=== PATIENT | male | born 1940 | race Caucasian/White ===

== ENCOUNTER → 2017-11-02 07:56 | Outpatient (CLI) | payer MEDICARE, SELFPAY ==
[2017-11-02 12:49] LABS: Anion Gap 5 (5-15); BUN 20 mg/dL (7-18); BUN/Creat Ratio 12.2 RATIO (10-20); Calcium,Total 8.8 mg/dL (8.5-10.1); Chloride 104 mmol/L (98-107); Creatinine, Serum 1.64 mg/dL (0.70-1.30); EST Glomerular Filtration Rate 43 mL/min (>60); Est Glom Filt Rate - Afr Amer 53 mL/min (>60); Glucose 91 mg/dL (74-106); Potassium 4.3 mmol/L (3.5-5.1); Sodium Level 139 mmol/L (136-145)
== END ==
PROVIDERS: Visit Provider Nurse Practitioner
DX: N18.3 Chronic kidney disease, stage 3 (moderate) (principal)
CPT/HCPCS: 80048

== ENCOUNTER → 2018-08-15 13:34 | Outpatient (CLI) | payer MEDICARE, SELFPAY ==
[2018-08-15 13:59] LABS: Hematocrit 48.2 % (40-54); Hemoglobin 15.3 g/dl (13.0-16.5); Mean Corp Hgb Conc 31.7 g/gl (32-36); Mean Corpuscular Hgb 29.1 pg (27.0-32.0); Mean Corpuscular Volume 91.8 fL (80-94); Mean Platelet Vol. 10.2 fl (6.2-12.0); Platelet Count 249 K/mm3 (150-450); RBC Distribution Width CV 13.2 % (11.6-14.6); RBC Distribution Width SD 43.6 fl (35.1-43.9); Red Blood Count 5.25 M/mm3 (4.6-6.2); White Blood Count 10.7 K/mm3 (4.4-11.0)
[2018-08-15 14:05] LABS: Scan Indicated on CBC? Y/N NO
[2018-08-15 14:27] LABS: ALB/GLOB Ratio 0.9 RATIO (0.9-2.4); AST(SGOT) 20 U/L (15-37); Alanine Aminotransfer ALT/SGPT 26 U/L (16-61); Albumin, Serum 3.7 g/dL (3.2-5.0); Alkaline Phosphatase 90 U/L (45-117); Anion Gap 7 (5-15); BUN 16 mg/dL (7-18); BUN/Creat Ratio 12.6 RATIO (10-20); Calcium,Total 8.7 mg/dL (8.5-10.1); Chloride 108 mmol/L (98-107); Cholesterol 151 mg/dL (200); Creatinine, Serum 1.27 mg/dL (0.70-1.30); EST Glomerular Filtration Rate 58 mL/min (>60); Est Glom Filt Rate - Afr Amer 70 mL/min (>60); Glucose 93 mg/dL (74-106); High Density Lipoprotein 47 mg/dL; Potassium 4.4 mmol/L (3.5-5.1); Protein, Total 7.7 g/dL (6.4-8.2); Sodium Level 144 mmol/L (136-145); Thyroid Stim Hormone (TSH) 2.53 uIU/mL (0.358-3.74); Triglycerides 117 mg/dL; Very Low Density Lipoprotein 23 mg/dL (5-40)
== END ==
PROVIDERS: Family Provider Internal Medicine; PCP Internal Medicine; Referring Provider Internal Medicine; Visit Provider Internal Medicine
DX: E78.49 Other hyperlipidemia (principal); E03.9 Hypothyroidism, unspecified; N18.3 Chronic kidney disease, stage 3 (moderate); K21.9 Gastro-esophageal reflux disease without esophagitis
CPT/HCPCS: 80053; 80061; 84443; 85027

== ENCOUNTER 2018-11-02 17:53 | Emergency (ER) | payer MEDICARE, SELFPAY ==
[2018-11-02 17:54] VITALS: BP 138/75; PULSE 71; RESP 17; TEMP 36.4; O2SAT 97
[2018-11-02 18:38] VITALS: BP 135/71; PULSE 68; RESP 14
--- NOTE | 2018-11-02 19:00 | EKG12_ITS ---
Test Reason : ABN LABS Blood Pressure : / mmHG Vent. Rate : 068 BPM Atrial Rate : 068 BPM P-R Int : 172 ms QRS Dur : 084 ms QT Int : 422 ms P-R-T Axes : 043 007 047 degrees QTc Int : 448 ms Normal sinus rhythm Normal ECG Confirmed by LEAH LAM ([id number]), supervising editor news reel LANCE COBURN ([id number]) on 11/05/2018 1:54:57 PM Referred By: MAUREEN Confirmed By:LEAH LAM
--- NOTE | 2018-11-02 19:00 | CT_ITS ---
STUDY: CT ABDOMEN AND PELVIS WITHOUT CONTRAST REASON FOR EXAM: Male, 78 years old. Abdominal pain with nausea and vomiting Monday, hypokalemia RADIATION DOSAGE (If Supplied By Facility): CTDIvol = ( 12.77 ) mGy, DLP = ( 666.59 ) mGycm TECHNIQUE: Transaxial images were obtained from the dome of the diaphragm to the symphysis pubis without oral contrast, and without intravenous contrast. Sagittal and coronal images were reconstructed. Individualized dose optimization techniques were used for this CT. COMPARISON: None. FINDINGS: The visualized lung bases are unremarkable. Coronary artery calcifications noted. Normal liver. Normal gallbladder and extrahepatic biliary system. Normal spleen. Normal pancreas. Normal bilateral adrenal glands. Normal right kidney. Normal left kidney. Normal visualized stomach. Diffuse fluid-filled small bowel and proximal colon but no large or small bowel wall thickening. There are multiple colonic diverticula consistent with diverticulosis. The appendix is visualized and appears normal. There is diffuse atherosclerotic calcification of the abdominal aorta, without a demonstrated aneurysm. Normal inferior vena cava. Normal retroperitoneum. Normal urinary bladder. Normal abdominal wall. There are diffuse degenerative changes of the visualized lumbar spine. CT/Abdomen/Pelvis without Cont IMPRESSION: 1. No evidence of bowel obstruction. 2. Fluid-filled small bowel and colon suggesting gastroenteritis/diarrhea disease. 3. Atherosclerosis. 4. Diverticulosis without evidence of diverticulitis. Electronically Signed: Romulo Hagan MD at 20:43 EDT , Service support ,
--- NOTE | 2018-11-02 19:01 | ED.VISSUMM ---
- ER Visit Summary Date of Service: 11/02/18 Chief Complaint: Abnormal labs History of Present Illness: The patient is a 78 M referred to the emergency department by his primary care doctor because of abnormal labs. Per the patient his potassium was low. Patient does not know what the number was and it is not in our system. Patient states he has had diarrhea and vomiting for the last 5 days after eating lobster. Diarrhea has been profuse and watery. The vomiting stopped yesterday. He has abdominal discomfort. He denies any chest pain, shortness of breath, fever or other complaints. He is not on any blood thinners. He denies cardiac history. He has history of hypertension and hyperlipidemia. Physical Examination: Vital signs: afebrile, hemodynamically stable, no hypoxia on room air General: well nourished, well developed, in no distress Skin: warm, dry, no rash, no pallor HEENT: normocephalic and atraumatic; PERRL, EOMI, moist mucous membranes Cardiovascular: regular rate and rhythm without murmurs, no peripheral edema, 2+ pulses all distal extremities Respiratory: No increased work of breathing, lungs are clear to auscultation bilaterally, no rales, rhonchi or wheezing Abdominal: Abdomen is soft, nontender with hyperactive bowel sounds, no guarding or rebound, no masses MSK: Moves all extremities, no deformities, normal strength Neuro: Awake and alert, oriented ?4. No facial droop, sensation and motor function intact and symmetric Test Results: Abnormal Lab Results 11/02/18 11/02/18 18:06 18:06 WBC 10.0 RBC 5.67 Hgb 17.1 H Hct 48.3 MCV 85.2 MCH 30.2 MCHC 35.4 RDW 12.6 RDW Differential 39.2 Plt Count 245 MPV 9.4 Immature Gran % (Auto) 0.200 Neut % (Auto) 68.6 Lymph % (Auto) 18.8 L Norton % (Auto) 11.2 H Eos % (Auto) 0.9 Baso % (Auto) 0.3 Absolute Neuts (auto) 6.9 Absolute Lymphs (auto) 1.88 Total Counted Not Reportable Sodium 134 L Potassium 3.3 L Chloride 101 Carbon Dioxide 28.0 Anion Gap 5 BUN 35 H Creatinine 1.63 H Estim Creat Clear Calc 35.55 Est GFR (MDRD) Af Amer 53 L Est GFR (MDRD) Non-Af 44 L BUN/Creatinine Ratio 21.5 H Glucose 90 Calcium 8.5 Total Bilirubin 0.80 AST 40 H ALT 36 Alkaline Phosphatase 92 Total Protein 9.0 H Albumin 4.2 Globulin 4.8 H Albumin/Globulin Ratio 0.9 Clinical Impression(s) from Imaging Studies Abdomen/Pelvis CT 11/02/18 19:00 IMPRESSION: 1. No evidence of bowel obstruction. 2. Fluid-filled small bowel and colon suggesting gastroenteritis/diarrhea disease. 3. Atherosclerosis. 4. Diverticulosis without evidence of diverticulitis. Electronically Signed: Romulo Hagan MD at 20:43 EDT , Service support , Medications Given Discontinued Medications Sodium Chloride () 1,000 mls @ 1,000 mls/hr IV .Q1H ONE Stop: 11/02/18 19:59 Last Admin: 11/02/18 19:15 Dose: 1,000 mls/hr Potassium Chloride (K-Dur) 60 meq PO X1 ONE Stop: 11/02/18 20:11 Last Admin: 11/02/18 20:33 Dose: 60 meq Emergency Department Course and Treatment: Patient presents after referral by his primary care doctor for low potassium. Labs were not available for review. Work-up performed. EKG showed a sinus rhythm with diffuse T wave flattening but no other changes. Labs showed no leukocytosis. Potassium was 3.3. Creatinine was 1.6, which is consistent with prior readings that the patient has had. BUN was also elevated, consistent with mild dehydration. Patient was given IV fluids for hydration. He was given oral potassium for repletion. Because of his diarrhea and the recent vomiting, which is since resolved, CT the abdomen and pelvis was performed that showed fluid-filled loops of bowel consistent with a diarrheal illness. Patient already has stool studies pending with his primary care doctor. He is very well-appearing and has had no vomiting or diarrhea in the emergency department. She was discharged home and is to follow-up with his doctor on Monday for further review of his outpatient work-up and to further discuss his potassium. Patient agreed with this plan and was discharged home very well-appearing and in no distress. Treatment Plan: [] Disposition: [] Impression: Mild hypokalemia, mild dehydration, vomiting and diarrhea illness This note was generated with Modabound dictation software. It may contain incorrect words, spelling, and punctuation that were not noted in review of the chart prior to signing ED Disposition - Plan for ED Patient: Disposition: Home or Assisted Living Instructions: ED Potassium Deficiency, ED Vomiting Diarrhea Nonspecific Ad Referrals: Aldo Sotelo MD [Primary Care Provider] - As soon as possible Additional Instructions: Your potassium was only slightly low at 3.3. You were given an oral dose of potassium. Your work-up also was concerning for mild dehydration. You were given IV fluids for this. Please follow-up with your doctor on Monday for another evaluation and to discuss the results from today. Also please follow-up with your doctor to discuss the results of your stool study that your doctor did. If you have any worsening of your condition or any further concerns, return immediately to the emergency department for another evaluation.
[2018-11-02] MEDS: 0.9% Normal Saline 1,000 ML 1000 ML IV (19:15)
[2018-11-02 19:33] LABS: Absolute Lymphocyte Count 1.88 X10^3/ul (0.83-4.51); Absolute Neutrophil Count 6.9 X10^3/uL (2.0-7.7); Basophil# 0.03 X10^3/uL; Basophil% 0.3 % (0-1); Eosinophil# 0.09 X10^3/uL; Eosinophils% 0.9 % (0-5); Hematocrit 48.3 % (40-54); Hemoglobin 17.1 g/dl (13.0-16.5); Lymphocyte # 1.88 X10^3/ul (4.0); Lymphocyte % 18.8 % (19-41); Mean Corp Hgb Conc 35.4 g/gl (32-36); Mean Corpuscular Hgb 30.2 pg (27.0-32.0); Mean Corpuscular Volume 85.2 fL (80-94); Mean Platelet Vol. 9.4 fl (6.2-12.0); Monocyte# 1.12 X10^3/uL; Monocyte% 11.2 % (0-10); Neutrophil # 6.87 X10^3/uL (2.7-7.7); Neutrophil % 68.6 % (47-70); POSITIVE COUNT NO; POSITIVE DIFFERENTIAL NO; POSITIVE MORPHOLOGY NO; Platelet Count 245 K/mm3 (150-450); RBC Distribution Width CV 12.6 % (11.6-14.6); RBC Distribution Width SD 39.2 fl (35.1-43.9); Red Blood Count 5.67 M/mm3 (4.6-6.2)
[2018-11-02 19:44] LABS: ALB/GLOB Ratio 0.9 RATIO (0.9-2.4); AST(SGOT) 40 U/L (15-37); Alanine Aminotransfer ALT/SGPT 36 U/L (16-61); Albumin, Serum 4.2 g/dL (3.2-5.0); Alkaline Phosphatase 92 U/L (45-117); Anion Gap 5 (5-15); BUN 35 mg/dL (7-18); BUN/Creat Ratio 21.5 RATIO (10-20); Calcium,Total 8.5 mg/dL (8.5-10.1); Chloride 101 mmol/L (98-107); Creatinine, Serum 1.63 mg/dL (0.70-1.30); EST Glomerular Filtration Rate 44 mL/min (>60); Est Glom Filt Rate - Afr Amer 53 mL/min (>60); Estimated Creatinine Clearance 35.55 ml/min; Globulin 4.8 g/dL (2.2-4.2); Glucose 90 mg/dL (74-106); Potassium 3.3 mmol/L (3.5-5.1); Sodium Level 134 mmol/L (136-145)
[2018-11-02 20:00] VITALS: BP 138/59; PULSE 62; RESP 13; O2SAT 98
[2018-11-02 22:47] VITALS: BP 124/72; PULSE 69; RESP 16; O2SAT 98
== END 2018-11-02 22:47 | disposition home or self-care (01) ==
PROVIDERS: Emergency Provider Emergency Medicine; Family Provider Internal Medicine; PCP Internal Medicine
DX: E87.6 Hypokalemia (principal); E86.0 Dehydration; R11.10 Vomiting, unspecified; R19.7 Diarrhea, unspecified; K57.90 Diverticulosis of intestine, part unspecified, without perforation or abscess without bleeding; K21.9 Gastro-esophageal reflux disease without esophagitis; I10 Essential (primary) hypertension; E78.00 Pure hypercholesterolemia, unspecified; Z79.82 Long term (current) use of aspirin; Z79.899 Other long term (current) drug therapy
CPT/HCPCS: 74176; 80053; 85025; 93005; 96360; 99285; J7030; A4216

== ENCOUNTER → 2019-08-05 | Outpatient (CLI) | payer MEDICARE, SELFPAY ==
[2019-08-05 12:59] LABS: Hematocrit 44.7 % (40-54); Hemoglobin 14.3 g/dL (13.0-16.5); Mean Corpuscular Hgb 29.4 pg (27.0-32.0); Mean Corpuscular Volume 91.8 fL (80-94); Mean Platelet Vol. 10.5 fl (6.2-12.0); Platelet Count 297 K/mm3 (150-450); RBC Distribution Width CV 13.2 % (11.6-14.6); RBC Distribution Width SD 45.1 fl (35.1-43.9); Red Blood Count 4.87 M/mm3 (4.6-6.2); White Blood Count 9.9 K/mm3 (4.4-11.0)
[2019-08-05 13:10] LABS: Vitamin B12 1228 pg/mL (211-911)
[2019-08-05 13:11] LABS: ALB/GLOB Ratio 0.6 RATIO (0.9-2.4); AST(SGOT) 178 U/L (15-37); Alanine Aminotransfer ALT/SGPT 400 U/L (16-61); Albumin, Serum 3.1 g/dL (3.2-5.0); Alkaline Phosphatase 575 U/L (45-117); Anion Gap 4 (5-15); BUN 16 mg/dL (7-18); BUN/Creat Ratio 11.5 RATIO (10-20); Calcium,Total 9.3 mg/dL (8.5-10.1); Chloride 108 mmol/L (98-107); Cholesterol 212 mg/dL (200); Creatinine, Serum 1.39 mg/dL (0.70-1.30); EST Glomerular Filtration Rate 52 mL/min (>60); Est Glom Filt Rate - Afr Amer 63 mL/min (>60); Globulin 4.9 g/dL (2.2-4.2); Glucose 113 mg/dL (74-106); High Density Lipoprotein 48 mg/dL; Potassium 4.5 mmol/L (3.5-5.1); Sodium Level 140 mmol/L (136-145); Thyroid Stim Hormone (TSH) 2.53 uIU/mL (0.358-3.74); Triglycerides 77 mg/dL; Very Low Density Lipoprotein 15 mg/dL (5-40)
== END | disposition home or self-care (01) ==
LOC: LABSPEC 12:37
PROVIDERS: PCP Internal Medicine; Referring Provider Internal Medicine; Visit Provider Internal Medicine
DX: E78.49 Other hyperlipidemia (principal); E03.9 Hypothyroidism, unspecified; G31.84 Mild cognitive impairment of uncertain or unknown etiology; I10 Essential (primary) hypertension
CPT/HCPCS: 80053; 80061; 82607; 84443; 85027

== ENCOUNTER 2019-08-16 19:16 | Emergency (ER) | payer MEDICARE, SELFPAY ==
[2019-08-16 19:17] VITALS: BP 170/80; PULSE 87; RESP 16; TEMP 36.4; O2SAT 99; BMI 29.0
--- NOTE | 2019-08-16 19:50 | CT_ITS ---
HISTORY: CONFUSION Technique:CT Head or Brain W/O Contrast Injection Number of Images including paperwork:248 Comparison: None available. Findings: CT images of the head were obtained without contrast. Periventricular deep and subcortical white matter disease is present. Adjacent to the sagittal sinus, on the right side of the sagittal sinus, displacing blood within the sagittal sinus, series 2 image 33, sagittal series 602 image 37, there is a relatively hypodense area that measures 2.8 x 0.8 x 0.8 cm. I believe this likely represents dural sinus fat, and I do not believe it is hypodense thrombus. The size and appearance of the transverse sinuses and sigmoid sinuses and torcula are normal. There is no loss of lyle-white differentiation within the adjacent brain. There is some erosion of the bone posteriorly to this lesion. The erosion of the bone appears to be well corticated and chronic. Paranasal sinuses are clear. The brain is atrophic. Calcific ASCVD involves intracranial arteries. No acute intracranial edema or hemorrhage. No acute abnormality of orbits. Middle ear cavities and mastoid air cells are well aerated. Skull is normal. CT/Brain/Head without Contrast IMPRESSION: No acute intracranial abnormality. 2.8 x 0.8 x 0.8 filling defect in the posterior right lateral aspect of the sagittal sinus. There is some adjacent well-corticated deformity and erosion of bone. 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 Chronic changes as above. ASPECT 10. Individualized dose optimization techniques were used for this CT. at 2120 Reported and signed by: Khalif Andrews MD Electronically Signed: Khalif Andrews MD at 21:19 EST Tel , Service support ,
--- NOTE | 2019-08-16 19:51 | EKG12_ITS ---
Test Reason : DYSRHYTHMIA Blood Pressure : / mmHG Vent. Rate : 076 BPM Atrial Rate : 076 BPM P-R Int : 162 ms QRS Dur : 082 ms QT Int : 382 ms P-R-T Axes : 043 002 027 degrees QTc Int : 429 ms Normal sinus rhythm Normal ECG Confirmed by RUBY PEREZ, DEO ([id number]), editor index LANCE COBURN ([id number]) on 08/19/2019 2:08:44 PM Referred By: DUDLEY Confirmed By:JONELLE BELTRAN MD
[2019-08-16 20:09] LABS: Bacteria 0 SEEN /hpf (None Seen); Mucous, Urine 0 SEEN /hpf (<or=2+)
[2019-08-16 20:10] LABS: Absolute Lymphocyte Count 1.81 X10^3/uL (0.83-4.51); Absolute Neutrophil Count 10.6 X10^3/uL (2.0-7.7); Basophil# 0.08 X10^3/uL; Basophil% 0.6 % (0-1); Eosinophil# 0.06 X10^3/uL; Eosinophils% 0.4 % (0-5); Hematocrit 43.5 % (40-54); Hemoglobin 14.2 g/dL (13.0-16.5); Lymphocyte # 1.81 X10^3/ul (4.0); Lymphocyte % 13.1 % (19-41); Mean Corp Hgb Conc 32.6 g/dL (32-36); Mean Corpuscular Hgb 28.9 pg (27.0-32.0); Mean Corpuscular Volume 88.4 fL (80-94); Mean Platelet Vol. 9.6 fl (6.2-12.0); Monocyte# 1.19 X10^3/uL; Monocyte% 8.6 % (0-10); NRBC Flagged by Analyzer 0 % (0-5); Neutrophil # 10.63 X10^3/uL (2.7-7.7); Neutrophil % 76.9 % (47-70); Platelet Count 331 K/mm3 (150-450); RBC Distribution Width CV 14.9 % (11.6-14.6); RBC Distribution Width SD 48.5 fl (35.1-43.9); Red Blood Count 4.92 M/mm3 (4.6-6.2); White Blood Count 13.8 K/mm3 (4.4-11.0)
[2019-08-16 20:17] VITALS: BP 151/66; PULSE 80; RESP 16; O2SAT 98
[2019-08-16 20:28] LABS: Color, Urine Yellow (Yellow); Glucose, Dipstick Normal (Normal); Ketone-Dipstick 5 mg/dl (Negative); Leukocyte Esterase-Dipstick 25 /ul (Negative); Nitrite-Dipstick Positive (Negative); Occult Blood-Urine 50 /ul (Negative); Protein-Dipstick 30 mg/dl (Negative); Specific Gravity, Urine 1.025 (1.002-1.030); Urine Clarity Sl. Cloudy (Clear); Urine Urobilinogen 4 mg/dl (Normal)
[2019-08-16 20:40] LABS: Alcohol, Blood (Medical)-Serum < 3.0 mg/dL; Urine Bilirubin Dipstick 6 mg/dL (Negative)
[2019-08-16 20:43] LABS: Amorphous Sediment 1+ URATE; Red Blood Cells-Urine 0-5 SEEN /hpf (0-5); Squamous Epithelial Cells - UA 0-5 SEEN /hpf (0-5); White Blood Cells 0-5 SEEN /hpf (0-5)
[2019-08-16 20:44] LABS: Amphetamine Urine VISTA NEGATIVE (<1000 ng/mL); Barbiturate Urine VISTA NEGATIVE (< 200 ng/mL); Benzodiazepine Urine VISTA NEGATIVE (< 200 ng/mL); Cocaine Urine VISTA NEGATIVE (< 300 ng/mL); Ecstacy Urine VISTA NEGATIVE (< 500 ng/mL); Methadone Urine VISTA NEGATIVE (< 300 ng/mL); PCP Urine VISTA NEGATIVE (< 25 ng/mL); THC Urine VISTA NEGATIVE (< 50 ng/mL); Vista UDS pH Range 6
--- NOTE | 2019-08-16 20:45 | RAD_ITS ---
HISTORY: confusion, difficulty following breathing instructions EXAM: XR Chest 2 Views: COMPARISON: None FINDINGS: # of images incl. paperwork: 3 Lungs are clear. Heart is not enlarged. Gentle dextroscoliosis with multilevel degenerative disc disease. Shoulder arthritis. Pulmonary vascularity is distinct. No effusions. RAD/Chest PA and Lateral IMPRESSION: Normal. at 2122 Reported and signed by: Khalif Andrews MD Electronically Signed: Khalif Andrews MD at 21:21 EST Tel , Service support ,
[2019-08-16 20:52] LABS: AST(SGOT) 124 U/L (15-37); Alanine Aminotransfer ALT/SGPT 217 U/L (16-61); Albumin, Serum 3.2 g/dL (3.2-5.0); Alkaline Phosphatase 566 U/L (45-117); Anion Gap 9 (5-15); BUN 24 mg/dL (7-18); BUN/Creat Ratio 18.6 RATIO (10-20); Bilirubin, Direct 7.16 mg/dL (0.00-0.30); Calcium,Total 8.9 mg/dL (8.5-10.1); Chloride 108 mmol/L (98-107); Creatinine, Serum 1.29 mg/dL (0.70-1.30); EST Glomerular Filtration Rate 57 mL/min (>60); Est Glom Filt Rate - Afr Amer 69 mL/min (>60); Estimated Creatinine Clearance 44.92 ml/min; Globulin 5.3 g/dL (2.2-4.2); Glucose 116 mg/dL (74-106); Lipase 5088 U/L (73-393); Potassium 3.6 mmol/L (3.5-5.1); Protein, Total 8.5 g/dL (6.4-8.2); Sodium Level 138 mmol/L (136-145); Thyroid Stim Hormone (TSH) 2.88 uIU/mL (0.358-3.74)
--- NOTE | 2019-08-16 21:04 | CT_ITS ---
HISTORY: PAINLESS JAUNDICE TECHNIQUE: Helically acquired images were obtained of the abdomen and pelvis without oral or IV contrast. A radiation dose optimization technique was used for this scan. COMPARISON: Previous CT scan of the abdomen and pelvis is from November 02, 2018 FINDINGS: # of images incl. 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 CT abdomen: Rotor scoliosis. Multilevel degenerative disc disease. Facet arthropathy. No defined lytic or blastic metastasis. The gallbladder is distended. No hepatic metastasis are perceived Intrahepatic biliary ductal dilatation is severe. The outer to outer diameter of the common hepatic duct is 17 mm. The common bile duct as it begins to enter into the pancreatic head is also 17 mm. The pancreatic duct is also dilated. The pancreatic duct dilatation within the head of the pancreas is to 11 mm. I cannot define a pancreatic head malignancy, however, due to the heterogeneity of the pancreatic head and the biliary and pancreatic ductal dilatation, the possibility of a pancreatic head neoplasm should be considered high within the differential. The ductal dilatation is new since the previous study Thespleen, and adrenal glands are normal. The kidneys are normal. The aorta is diseased with atherosclerotic plaque, but without aneurysm or dissection. CT pelvis: No ascites is present. The prostate gland is slightly enlarged indenting into the posterior inferior aspect of the urinary bladder. The appendix is prominent but normal, series 2 image 73. The bladder is normal. 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 The gallbladder is also distended, possibly due to the common bile duct obstruction. Individualized dose optimization techniques were used for this CT. at 2215 Reported and signed by: Khalif Andrews MD Electronically Signed: Khalif Andrews MD at 22:14 EST Tel , Service support ,
[2019-08-16 21:17] VITALS: BP 156/71; PULSE 73; RESP 18; O2SAT 98
--- NOTE | 2019-08-16 21:30 | ED.VISSUMM ---
- ER Visit Summary Date of Service: 08/16/19 Chief Complaint: Confusion History of Present Illness: The patient is a [address] Sotelo. Patient has confusion and obvious delusions that began today. He called his son and told him that somebody was coming after him with a air soft gun and was going to kill him. He actually went to a hotel and checked again and had barricaded him in the room. When son arrived there was nobody there. Patient had a similar episode last summer and saw psychologist 3-4 times. He had been doing well since then. Patient reports that his urine has been an odd color for approximately 2 weeks. He also reports he had a nonproductive cough for the past 2 weeks. He denies any other complaints. Physical Examination: Vitals: Stable. Afebrile. General: Well-nourished and well-developed. Head: Normocephalic atraumatic. Neck: Supple, no lymphadenopathy. No JVD. Nontender. Cardiovascular: Regular rate and rhythm. No murmurs. Respiratory: No respiratory distress. Clear to auscultation bilaterally. Abdominal: Soft, nontender, nondistended, normal bowel sounds. No guarding, rebound, or peritoneal signs. Back: Nontender. Extremities: Nontender, no edema. Skin: Scleral icterus and mild jaundice, no rash. Neurologic: Alert and oriented ?3. Cranial nerves II through XII are intact. Normal strength and sensation. Psych: Paranoid and clearly delusional. Patient still feels that people are after him. Test Results: EKG is sinus at 76 with no acute changes. UA is negative. LFTs show total bili of 8.6 with a direct bili of 7.16, alk phos of 566, ALT of 217, AST of 124. Lipase is 5088. Chem-7 shows a chloride of 108, glucose 116, BUN of 24. CBC shows a white count of 13.8 with 77 segmented neutrophils and 13 lymphocytes. Ammonia is normal. TSH is 2.88. Blood alcohol level is negative. Talk screen is negative. Clinical Impression(s) from Imaging Studies Brain CT 08/16/19 19:50 IMPRESSION: No acute intracranial abnormality. 2.8 x 0.8 x 0.8 filling defect in the posterior right lateral aspect of the sagittal sinus. There is some adjacent well-corticated deformity and erosion of bone. 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 Chronic changes as above. ASPECT 10. Individualized dose optimization techniques were used for this CT. at 2120 Reported and signed by: Khalif Andrews MD Electronically Signed: Khalif Andrews MD at 21:19 EST Tel , Service support , Chest X-Ray 08/16/19 20:45 IMPRESSION: Normal. 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 The gallbladder is also distended, possibly due to the common bile duct obstruction. Individualized dose optimization techniques were used for this CT. at 2215 Reported and signed by: Khalif Andrews MD Electronically Signed: Khalif Andrews MD at 22:14 EST Tel , Service support , Emergency Department Course and Treatment: Patient is rested comfortably without complaint. Treatment Plan: Patient was discussed with Dr. Ricks. She has that we transfer him to a tertiary care center. He is chosen to go to [facility]. Disposition: Transferred in improved condition. Impression: 1. Painless jaundice. 2. Pancreatic mass. 3. Pancreatitis. 4. Confusion. This note was generated with Meshifyation software. It may contain incorrect words, spelling, and punctuation that were not noted in review of the chart prior to signing ED Disposition - Plan for ED Patient: Referrals: Aldo Sotelo MD [Primary Care Provider] -
[2019-08-16 22:00] VITALS: BP 128/74; PULSE 78; RESP 16; O2SAT 96
[2019-08-16 23:00] VITALS: RESP 16
[2019-08-17] VITALS (8 sets, daily range): BP systolic 144–153; BP diastolic 59–61; PULSE 64; RESP 16–18; O2SAT 98–99
--- NOTE | 2019-08-17 00:10 | ED.RN ---
patient has been accepted to the [facility] waiting for bed assignment
--- NOTE | 2019-08-17 06:13 | ED.RN ---
[facility] called at this time. patient will require prior approval of authorization for admission before room assignment can be given to patient at this time. patient can not be accepted at this time until insurance company approves admission at this time. Will attempt and speak with social work at this time
--- NOTE | 2019-08-17 06:36 | ED.RN ---
attempted to call [facility] at this time for preapproval for admission phone number also tried
--- NOTE | 2019-08-17 06:40 | ED.RN ---
spoke with arthur son at this time over insurance issues discussed issues unable to get pre approval discussed admission issue, family willing to have patient transferred to or admitted to [facility]. Spoke with Dr. Piper at this time patient unable to be accepted due to surgeon refusing admission hospitalist unable to accept will attempt to get patient transferred to at this time
--- NOTE | 2019-08-17 06:50 | ED.RN ---
spoke to admissions department at [facility] doctor for admission at this time
--- NOTE | 2019-08-17 07:05 | ED.RN ---
Patient has been accepted to Dr. Phelps waiting for room assignment at this time
--- NOTE | 2019-08-17 07:15 | ED.RN ---
spoke with son arthur at this time and made aware of admission to
--- NOTE | 2019-08-17 07:43 | ED.RN ---
REPORT CALLED TO JEAN-PAUL OLIVEIRA.
--- NOTE | 2019-08-17 07:46 | ED.RN ---
REPORT CALLED TO SON CANDICE.
== END 2019-08-17 08:15 | disposition home or self-care (01) ==
PROVIDERS: Emergency Provider Emergency Medicine; PCP Internal Medicine
DX: R17 Unspecified jaundice (principal); K85.90 Acute pancreatitis without necrosis or infection, unspecified; K86.89 Other specified diseases of pancreas; R41.0 Disorientation, unspecified; F22 Delusional disorders; R05 Cough; Z79.899 Other long term (current) drug therapy
CPT/HCPCS: 70450; 71046; 74177; 80048; 80076; 80307; 80320; 81001; 82140; 83690; 84443; 84484; 85025; 93005; 99285; Q9967; A4216; G0480

== ENCOUNTER → 2019-11-08 | Outpatient (CLI) | payer MEDICARE, SELFPAY ==
[2019-11-08 13:08] LABS: Absolute Lymphocyte Count 2.41 X10^3/uL (0.83-4.51); Absolute Neutrophil Count 2.8 X10^3/uL (2.0-7.7); Basophil# 0.15 X10^3/uL; Basophil% 2.5 % (0-1); Eosinophil# 0.04 X10^3/uL; Eosinophils% 0.7 % (0-5); Hemoglobin 13.1 g/dL (13.0-16.5); Lymphocyte # 2.41 X10^3/ul (4.0); Lymphocyte % 40.2 % (19-41); Mean Corp Hgb Conc 32.8 g/dL (32-36); Mean Corpuscular Hgb 30.3 pg (27.0-32.0); Mean Corpuscular Volume 92.6 fL (80-94); Mean Platelet Vol. 10.1 fl (6.2-12.0); Monocyte# 0.43 X10^3/uL; Monocyte% 7.2 % (0-10); NRBC Flagged by Analyzer 0 % (0-5); Neutrophil % 46.7 % (47-70); Platelet Count 575 K/mm3 (150-450); RBC Distribution Width CV 13.9 % (11.6-14.6); RBC Distribution Width SD 46.4 fl (35.1-43.9); Red Blood Count 4.32 M/mm3 (4.6-6.2)
[2019-11-08 14:05] LABS: Hemoglobin A1c 6.1 % (4.2-6.3)
--- NOTE | 2019-11-08 14:25 | EKG12_ITS ---
Test Reason : CP CANCER Blood Pressure : / mmHG Vent. Rate : 093 BPM Atrial Rate : 093 BPM P-R Int : 168 ms QRS Dur : 068 ms QT Int : 356 ms P-R-T Axes : 039 013 006 degrees QTc Int : 442 ms Normal sinus rhythm Normal ECG Confirmed by CAROLEE PREEZ, KARLA ([id number]), newspaper photo editor ALAN WALKER ([id number]) on 11/11/2019 1:07:07 PM Referred By: Cody Grier Confirmed By:KARLA ZARCO MD
== END | disposition home or self-care (01) ==
PROVIDERS: PCP Internal Medicine; Referring Provider Internal Medicine Hematology & Oncology; Visit Provider Internal Medicine Hematology & Oncology
DX: C25.0 Malignant neoplasm of head of pancreas (principal); R73.9 Hyperglycemia, unspecified
CPT/HCPCS: 83036; 85025; 93005

== ENCOUNTER → 2019-11-28 | Outpatient (CLI) | payer MEDICARE, SELFPAY ==
[2019-11-29 13:18] LABS: Carbohydrate AG 19-9 12 U/mL (0-35)
== END | disposition home or self-care (01) ==
LOC: LABSPEC 13:18
PROVIDERS: PCP Internal Medicine; Referring Provider Internal Medicine Hematology & Oncology; Visit Provider Internal Medicine Hematology & Oncology
DX: C25.0 Malignant neoplasm of head of pancreas (principal)
CPT/HCPCS: 86301

== ENCOUNTER 2020-01-16 14:22 | Emergency (ER) | payer MEDICARE, SELFPAY ==
[2020-01-16] VITALS (7 sets, daily range): BP systolic 131–148; BP diastolic 71–73; PULSE 76; RESP 16–18; TEMP 36.4; O2SAT 95–99; BMI 25.8
--- NOTE | 2020-01-16 14:51 | EKG12_ITS ---
Test Reason : MENTAL HEALTH Blood Pressure : / mmHG Vent. Rate : 067 BPM Atrial Rate : 067 BPM P-R Int : 174 ms QRS Dur : 074 ms QT Int : 404 ms P-R-T Axes : 041 030 056 degrees QTc Int : 426 ms Normal sinus rhythm Nonspecific ST abnormality Abnormal ECG Confirmed by LEAH LAM ([id number]), social media editor ALAN WALKER ([id number]) on 01/20/2020 11:48:49 AM Referred By: Confirmed By:LEAH ALM
--- NOTE | 2020-01-16 14:52 | CT_ITS ---
STUDY: CT BRAIN WITHOUT CONTRAST REASON FOR EXAM: Male, 79 years old. HALLUCINATIONS, MENTAL HEALTH CLEARANCE RADIATION DOSAGE (If Supplied By Facility): CTDIvol = ( 60.81 ) mGy, DLP = ( 1067.08 ) mGycm TECHNIQUE: Transaxial CT imaging of the brain was performed without administration of intravenous contrast material. Individualized dose optimization techniques were used for this CT. COMPARISON: None. FINDINGS: There is cerebral atrophy with widening of the extra-axial spaces and ventricular dilatation. There are areas of decreased attenuation within the white matter tracts of the supratentorial brain, consistent with microvascular disease changes. There is no intracranial hemorrhage. There are no findings of an acute ischemic infarction. Normal soft tissue structures. Normal visualized paranasal sinuses. CT/Brain/Head without Contrast IMPRESSION: Chronic involutional changes of the brain. Electronically Signed: Julianne Mendez MD at 15:59 EDT Tel , Service support ,
[2020-01-16 15:16] LABS: Bacteria 0 SEEN /hpf (None Seen); Mucous, Urine 0 SEEN /hpf (<or=2+); Red Blood Cells-Urine 0 SEEN /hpf (0-5); White Blood Cells 0 SEEN /hpf (0-5)
[2020-01-16 15:18] LABS: Hematocrit 30.5 % (40-54); Hemoglobin 9.7 g/dL (13.0-16.5); Mean Corp Hgb Conc 31.8 g/dL (32-36); Mean Corpuscular Volume 91.3 fL (80-94); Mean Platelet Vol. 9.9 fl (6.2-12.0); POSITIVE COUNT YES; POSITIVE MORPHOLOGY YES; Platelet Count 130 K/mm3 (150-450); RBC Distribution Width CV 15.8 % (11.6-14.6); RBC Distribution Width SD 50.2 fl (35.1-43.9); Red Blood Count 3.34 M/mm3 (4.6-6.2)
[2020-01-16 15:29] LABS: Color, Urine Yellow (Yellow); Glucose, Dipstick Normal (Normal); Ketone-Dipstick Negative (Negative); Leukocyte Esterase-Dipstick Negative /ul (Negative); Nitrite-Dipstick Negative (Negative); Occult Blood-Urine Negative /ul (Negative); Protein-Dipstick Negative (Negative); Urine Bilirubin Dipstick Negative (Negative); Urine Clarity Sl. Cloudy (Clear); Urine Urobilinogen Normal (Normal)
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
[2020-01-16 15:40] LABS: ALB/GLOB Ratio 0.7 RATIO (0.9-2.4); AST(SGOT) 37 U/L (15-37); Alanine Aminotransfer ALT/SGPT 29 U/L (16-61); Albumin, Serum 2.9 g/dL (3.2-5.0); Alkaline Phosphatase 74 U/L (45-117); Anion Gap 4 (5-15); BUN 19 mg/dL (7-18); Calcium,Total 8.7 mg/dL (8.5-10.1); Chloride 108 mmol/L (98-107); Creatinine, Serum 1.12 mg/dL (0.70-1.30); EST Glomerular Filtration Rate 67 mL/min (>60); Est Glom Filt Rate - Afr Amer 81 mL/min (>60); Globulin 4.2 g/dL (2.2-4.2); Glucose 90 mg/dL (74-106); Protein, Total 7.1 g/dL (6.4-8.2); Sodium Level 137 mmol/L (136-145); Thyroid Stim Hormone (TSH) 3.31 uIU/mL (0.358-3.74)
[2020-01-16 15:46] LABS: Differential Indicated MANUAL DIFF
[2020-01-16 15:49] LABS: Alcohol, Blood (Medical)-Serum < 3.0 mg/dL
[2020-01-16 15:55] LABS: Anisocytosis 1+; Eosinophil 6 % (0-5); Lymphocyte 21 % (19-41); Monocyte 10 % (0-10); Neutrophil-Band 1 % (0-5); Neutrophil-Segmented 62 % (47-70); Total Cells Counted 100 (MANUAL DIFF)
[2020-01-16 15:56] LABS: Platelet Estimate ADEQUATE (ADEQ); Polychromasia RARE
[2020-01-16 15:57] LABS: Squamous Epithelial Cells - UA 0-5 SEEN /hpf (0-5)
[2020-01-16 15:58] LABS: Absolute Lymphocyte Count 1.68 X10^3/uL (0.83-4.51)
[2020-01-16 16:09] LABS: Amphetamine Urine VISTA NEGATIVE (<1000 ng/mL); Barbiturate Urine VISTA NEGATIVE (< 200 ng/mL); Benzodiazepine Urine VISTA NEGATIVE (< 200 ng/mL); Cocaine Urine VISTA NEGATIVE (< 300 ng/mL); Ecstacy Urine VISTA NEGATIVE (< 500 ng/mL); Methadone Urine VISTA NEGATIVE (< 300 ng/mL); PCP Urine VISTA NEGATIVE (< 25 ng/mL); THC Urine VISTA NEGATIVE (< 50 ng/mL); Vista UDS pH Range 6
--- NOTE | 2020-01-16 16:20 | CM.ED ---
SOCIAL WORK Informant: Dr. Dugan Reason for Consult: Assist with stephanie-psych placement Chief Complaint: Patient presents to ER from physician's office- Dr. Sotelo for medical clearance for stephanie-psych placement to [facility] in [place], [place]. Patient with history of pancreatic cancer and was having chemo therapy treatments. Patient with history of dementia with sundowners. Living Situation: Patient had been living with a girlfriend up until a few days ago. Patient now lives alone in an apartment. Support/Resources: Caregiver/family friend, Sabina Real. Mental Health Treatment/History: Depression. Not treated with medication. Substance Abuse History: None Risk to Self/Others: Patient denies any suicidal or homicidal ideation, plan or intent. Mental Status Exam: Orientation- A&Ox3 Memory- Impaired Appearance/General Behavior- clean/appropriate, agitation Mood/Affect: anxious Communication Pattern: Responds to questions, confusion noted Thought Process: paranoid, reports some visual and auditory hallucinations Judgment: fair Assessment: Patient presents from PCP-Dr. Sotelo office for medical clearance for stephanie-psych placement. Patient needing rapid COVID testing completed for placement. Met with patient and caregiver/family friend, Sabina in room. Patient gave permission for this worker to speak openly with Sabina present. Sabina reports patient does have HPOA, son Jamin who resides in [place]. Sabina stating patient needing medication stabilization at stephanie-psych facility due to agitation, aggression and paranoia. This worker to assist with facilitating placement. Plan: Referral for stephanie-psych initiated by PCP office to [facility]. Emma Majano, GLASS BEVELER, HEEL COVERER
--- NOTE | 2020-01-16 16:30 | CM.ED ---
SOCIAL WORK Awaiting results of COVID testing. Referral faxed and called to [facility] per patient and family request. Per friend in room, Dr. Sotelo has already been in contact with facility. [facility] already aware of referral. Will fax results of COVID testing once received. Emma Majano, IT ARCHITECT, SLUSHER OPERATOR
--- NOTE | 2020-01-16 17:37 | CM.ED ---
SOCIAL WORK COVID results faxed to [facility].
--- NOTE | 2020-01-16 19:10 | CM.ED ---
SOCIAL WORK Call to [facility] to inquire about placement, spoke with Greta. Per Greta, does not have a bed for patient and states they had told patient's PCP that their facility would not have a bed until Monday. Greta apologized for the miscommunication. Met with patient and patient's family friend in room to update on the above. This worker to facilitate placement to a different facility. Emma Majano, GENETIC COUNSELLOR, WET PROCESS TECHNICIAN
--- NOTE | 2020-01-16 19:27 | CM.ED ---
SOCIAL WORK Call to [facility] to discuss referral. button station worker reports would be unable to accommodate patient. Call to [facility]. Discussed case with intake. Referral faxed for review. Awaiting acceptance. Emma Majano MSW, PRECISION GRINDER
--- NOTE | 2020-01-16 20:58 | CM.ED ---
SOCIAL WORK Call to [facility] to check on status of referral. size worker states still needs to review with physician and will call this worker back in 5-10 minutes. Emma Majano, CHIEF INVESTIGATOR, FOREIGN BANKNOTE TELLER TRADER
--- NOTE | 2020-01-16 21:50 | CM.ED ---
SOCIAL WORK Call to [facility] to check on status of referral due to end of shift, spoke with Nitza. Per Nitza, has an emergency and was unable to review with physician. Nitza states will review and call this worker back. Awaiting call back at this time. Updated patient and patient's caregiver at bedside. Emma Majano, ASSEMBLER UTILITY BUILDINGS, 3D SPECIALIST
--- NOTE | 2020-01-16 22:38 | CM.ED ---
SOCIAL WORK Received call from Nitza with [facility] with additional questions. All questions answered. Nitza will review with doctor and get back to this worker. Updated staff, patient and patient's caregiver in room. Plan: Pending acceptance at [facility] Emma Majano MSW, POLYMER SPECIALIST
--- NOTE | 2020-01-16 23:25 | CM.ED ---
SOCIAL WORK Call to Nitza at [facility] for update. Per Nitza, has been busy with referrals. Nitza apologized as does not have information on acceptance at this time and is still under review. Staff, patient and caregiver updated. Caregiver reports if patient not accepted to [facility], feels comfortable with taking patient home until bed available at facility in [place] on Monday/Monday. Patient denies any suicidal or homicidal ideation. Patient has remained calm and cooperative. Dr. Xie and staff updated on this workers conversation with caregiver. Emma Majano, BLACK JACK DEALER, PERISHABLE FRUIT INSPECTOR
[2020-01-17] VITALS (7 sets, daily range): BP systolic 116–151; BP diastolic 63–76; PULSE 70–89; RESP 16; TEMP 36.9; O2SAT 96–99
--- NOTE | 2020-01-17 08:51 | ED.RN ---
SPOKE WITH [facility], STATED THEY ARE WAITING ON MED LIST TO GIVE TO DR. SWIFT TO THEM AT [id number]
--- NOTE | 2020-01-17 09:07 | ED.RN ---
PER NINA DIVER HELPER SHE SPOKE WITH JAYNE AT [facility]. THE MED LIST WAS INCLUDED IN THE ORIGINAL PACKET THAT NINA SENT YESTERDAY. YESICA NAVARRO APOLOGIZED AND SHOULD CALL IN THE NEXT TEN MINUTES.
--- NOTE | 2020-01-17 11:03 | ED.RN ---
FAXED [facility] FOR THE SECOND TIME. MARRY @ [facility] STATED SHE DID NOT RECEIVE FIRST ONE
--- NOTE | 2020-01-17 11:28 | ED.RN ---
2 ATTEMPTS TO CALL [facility]
--- NOTE | 2020-01-17 11:54 | ED.RN ---
REPORT GIVEN TO [facility].
[2020-01-17 12:11] LABS: Pathologist Review Reviewed
== END 2020-01-17 13:43 ==
PROVIDERS: Emergency Provider Emergency Medicine; PCP Internal Medicine
DX: F03.91 Unspecified dementia, unspecified severity, with behavioral disturbance (principal); R44.1 Visual hallucinations; C25.9 Malignant neoplasm of pancreas, unspecified; Z79.899 Other long term (current) drug therapy
CPT/HCPCS: 70450; 80053; 80307; 80320; 81001; 84443; 85025; 87635; 93005; 94799; 99283; G0480; U0003